=== PATIENT | female | born 1970 | race Caucasian/White ===

== ENCOUNTER 2018-06-05 05:33 | Observation (INO) ==
[2018-06-05] MEDS ORDERED: Metoprolol Tartrate 25 MG Tablet PO ONE (06:05)
[2018-06-05] MEDS ORDERED: Chlorhexidine Gluconate 2% 1 Pack (2 Cloths) TOPICAL ONE (06:05)
[2018-06-05] MEDS ORDERED: ceFAZolin 2 GM IV; once IV.SIG PRN (06:06)
[2018-06-05] MEDS ORDERED: Sodium Chlor 0.9% Inj 500 ML IV.SIG SCH (07:00)
[2018-06-05] MEDS ORDERED: Fluorescein Sod 10% Inj 500 MG/5 ML Ampul IV.PUSH ONE (07:08)
[2018-06-05] MEDS ORDERED: Bupivacaine/Epinephrine PF Inj 0.5% 30 ML Vial ONE (07:08)
--- NOTE | 2018-06-05 07:11 | ECG ---
Date Performed: 06/05/2018 Time Performed: 06:40:32 PTAGE: 48 years EKG: Sinus rhythm WITH SINUS ARRHYTHMIA NORMAL ECG PREVIOUS TRACING : 02/19/2013 12.44 No significant change from previous tracing noted. DOCTOR: Lopez Serra Interpretating Date/Time 06/05/2018 07:11:26
--- NOTE | 2018-06-05 08:02 | P.OP ---
- Preoperative Diagnosis (1) Excessive and frequent menstruation with regular cycle (2) Enlarged uterus (3) Intramural leiomyoma of uterus (4) Secondary dysmenorrhea - Postoperative Diagnosis (1) Excessive and frequent menstruation with regular cycle (2) Enlarged uterus (3) Intramural leiomyoma of uterus (4) Secondary dysmenorrhea Date of procedure: 06/05/18 Procedure: 1. [facility] -- laparoscopic supracervical hysterectomy 2. B salpingectomy 3. 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 very large uterus with multiple large fibroids 2. normal ovaries 3. normal fallopian tubes Complications: none Condition: stable Disposition: PACU Descriptions of the procedure: I discussed the risks, benefits and alternatives of the procedure with the patient. Informed consent was obtained after questions were answered. She was then taken to the operating room with her IV running. She was placed in the supine position and was given general anesthesia without difficulties or complications. IV antibiotics were given prior to surgery. She was then placed in the dorsal lithotomy position and was prepped and draped in the usual sterile fashion. Attention was first turned to the patient's genital area. A bivalved speculum was introduced inside the patient's vagina. The anterior aspect of the cervix was grasped with a single tooth tenaculum for manipulation. The cervix was carefully dilated and electrocauterized with the Bovie. A uterine manipulator was carefully introduced inside her uterus. The rest of the instruments were removed from the patient's vagina. A sterile blue towel was used to cover the perineum. The surgeon changed gloves and attention was then turned to the patient's abdomen. A vertical umbilical incision was made with the scalpel. A 5 mm trocar was introduced inside the patient's abdomen under direct visualization. A pneumo -peritoneum was created with CO2 gas. Two 5 mm trocars and one 10 mm trocar were introduced inside the patient's abdomen under direct visualization in the lower right, left and mid abdomen. A survey of the patient's abdomen revealed normal anatomy. A survey of the patient's pelvis revealed the findings noted above. The fallopian tubes were carefully grasped, electrocauterized and transected with the Harmonic scalpel. The round ligaments and the utero-ovarian ligaments were carefully and serially grasped, electrocauterized and cut with the Harmonic scalpel. Excellent hemostasis was noted. Methylene blue dye was given to patient. With some degree of difficulty due to the size of the uterus and fibroids, the tissues along the uterus on both sides were serially grasped, electrocauterized and transected with the Harmonic scalpel. The ureters were noted to be away from the surgical site. The uterine vessels were skeletonized, electrocauterized and transected with the Harmonic scalpel. Good hemostasis was noted. Next, the bladder flap was created and the bladder was dissected off the lower uterine segment. Excellent hemostasis was noted. The uterine manipulator was removed. Harmonic scalpel was used to cut and electrocauterize the cervico-uterine junction. Good hemostasis was noted. The Kleppinger was used to electrocauterize the endocervix. The morcellator was introduced inside the abdomen under direct visualization and was used to cut the uterus. The tissues were carefully removed and sent to Pathology. The surgical sites were noted to be hemostatic. Copious irrigation was done. Care was taken to ensure the removal of all small pieces of tissue which were left in the abdomen and pelvis after morcellation. Methylene blue dye was given at the beginning of the surgical procedure. The ureters were identified again and were found to be away from the surgical sites. There was no evidence of injury or blockage of the ureters or bladder. AmnioFix and Intercede were placed over the cervix. All of the instruments were removed from the patient's abdomen. The ports were also removed under direct visualization. Excellent hemostasis was noted. The CO2 gas was carefully expressed out of the patient's abdomen. The 10 mm fascial incision was reapproximated with a figure eight stitch of 0-Vicryl. The skin incisions were injected with 0.5 % Marcaine and were reapproximated with subcutaneous stitches of 4-0 Vicryl. Mastisol and steri strips were placed over the incisions. At this time, a cystoscopy was done which showed patent, working ureters with good flow of blue-tinged urine. There was no injury to the bladder. The patient tolerated the procedure well. She was successfully extubated and transferred to PACU in stable condition. Note: I was unable to discuss surgical procedures and surgical findings with patient's . I called the contact name and number given by patient. A voicemail was left letting the patient's know that surgery went well.
[2018-06-05] MEDS ORDERED: Zolpidem Tartrate 5 MG Tablet PO PRN (10:27)
[2018-06-05] MEDS ORDERED: LORazepam 0.5 MG Tablet PO PRN (10:27)
[2018-06-05] MEDS ORDERED: Ibuprofen 600 MG Tablet PO PRN (10:27)
[2018-06-05] MEDS ORDERED: fentaNYL Citrate Inj 1,000 MCG/20 ML Vial ONE (10:49)
[2018-06-05] MEDS ORDERED: Morphine Inj 4 MG/ML Vial ONE (10:50)
[2018-06-05] MEDS ORDERED: fentaNYL Citrate Inj 100 MCG/2 ML Ampul ONE (10:51)
[2018-06-05] MEDS ORDERED: *Ondansetron Inj 4 MG/2 ML Vial PERIprocedural Use ONLY ONE (11:05)
[2018-06-05] MEDS ORDERED: *Promethazine Inj 25 MG/ML Vial PERIprocedural use ONLY ONE (11:53)
[2018-06-05 13:36] VITALS: RESP 18
[2018-06-05] MEDS: Nitrofurantoin Monohydrate-Macrocrystal 100 MG Capsule PO SCH (18:02)
[2018-06-05] MEDS ORDERED: Simethicone 80 MG Chew Tablet PO PRN (18:32)
[2018-06-05] MEDS: Docusate Sodium 100 MG Capsule PO SCH (20:53)
[2018-06-05 23:54] VITALS: O2SAT 97
[2018-06-06 04:59] VITALS: BP 117/54; PULSE 66; TEMP 98.3
[2018-06-06 05:54] LABS: Baso % (Auto) 0.2 % (0.0-2.0); Eos % (Auto) 0.3 % (0.0-4.0); Hematocrit 31.7 % (35.0-46.0); Hemoglobin 10.8 gm/dL (11.6-15.3); Lymph # (Auto) 2.1 th/mm3 (1.0-4.8); Lymph % (Auto) 19.3 % (9.0-44.0); Mean Corpuscular HGB Conc 34.2 % (32.0-36.0); Mean Corpuscular Hemoglobin 27.5 pg (27.0-34.0); Mean Corpuscular Volume 80.4 fL (80.0-100.0); Mean Platelet Volume 7.9 fL (7.0-11.0); Neut # (Auto) 7.8 th/mm3 (1.8-7.7); Neut % (Auto) 71.2 % (16.0-70.0); Platelet Count 232 th/mm3 (150-450); Red Blood Count 3.94 mil/mm3 (4.00-5.30); White Blood Count 10.9 th/mm3 (4.0-11.0)
[2018-06-06 06:18] LABS: Calcium 8.3 mg/dL (8.5-10.1); Potassium 3.5 meq/L (3.5-5.1)
--- NOTE | 2018-06-06 08:23 | P.PNOB ---
Assessment and Plan - Postoperative Procedures Operation Date: 06/05/18 07:30 Actual Procedures Side Surgeon p Laparoscopic Supracervical Hysterectomy, Bilateral Salpingectomy, CYSTOSCOPY Bilateral Alise Myers MD Postoperative day: 1 Postoperative status: doing well Postoperative plan: routine post-op care, discharge - Time Spent With Patient Total time spent is greater than 50% in coordination of care (as documented) at patient's floor/unit and/or counseling patient: 25 - 35 minutes Subjective Subjective: patient reports feeling better, patient has no complaints, patient desires discharge (patient was resting in bed eating breakfast; had no complaints), pain is well controlled Physical Exam Vital signs: Temp Pulse Resp BP Pulse Ox 98.3 F 66 18 117/54 L 97 06/06/18 04:00 06/06/18 04:00 06/06/18 04:00 06/06/18 04:00 06/06/18 04:00 - Constitutional no acute distress, average body habitus - Routine Abdominal Exam Present: soft, normoactive bowel sounds, surgical scars (clean dressings) - Urinary Catheter Management Indwelling Urethral Catheter Cath placed during this visit: yes Urethral indwelling: No Reason for Continuing: Not indwelling catheter Insertion date: 06/05/18 Insertion time: 12:15 Results - Labs CBC & Chem 7: 06/06/18 05:16 06/06/18 05:16 Labs: Laboratory Results - last 24 hr 06/06/18 06/06/18 05:16 05:16 WBC 10.9 RBC 3.94 L Hgb 10.8 L Hct 31.7 L MCV 80.4 MCH 27.5 MCHC 34.2 RDW 15.0 Plt Count 232 MPV 7.9 Neut % (Auto) 71.2 H Lymph % (Auto) 19.3 [place]ackelford % (Auto) 9.0 H Eos % (Auto) 0.3 Baso % (Auto) 0.2 Neut # (Auto) 7.8 H Lymph # (Auto) 2.1 [place]ord # (Auto) 1.0 H Eos # (Auto) 0.0 Baso # (Auto) 0.0 WBC Differential . Differential Comment Auto diff final Sodium 142 Potassium 3.5 Chloride 107 Carbon Dioxide 27.0 Anion Gap 8 BUN 9 Creatinine 0.83 Estimated GFR 73 L Random Glucose 115 H Calcium 8.3 L
[2018-06-06] MEDS: Nitrofurantoin Monohydrate-Macrocrystal 100 MG Capsule PO SCH (08:56)
[2018-06-06] MEDS: Docusate Sodium 100 MG Capsule PO SCH (08:56)
== END 2018-06-06 10:30 | disposition home or self-care (01) ==
LOC: HSDI 05:33 → HSDC 05:33 → H1EA 12:38
PROVIDERS: ADMIT Obstetrics & Gynecology; ATTEND Obstetrics & Gynecology
PROC: LAPLASH (ICD-10-PCS; 2018-06-05 07:46)